=== PATIENT | female | born 1990 | race Two or more races ===

== ENCOUNTER 2019-07-04 17:54 | Emergency (ER) | payer SELFPAY ==
[~2019-07-04] VITALS: Ht 157.5 cm; Wt 77.1 kg
[2019-07-04 18:02] VITALS: BP 159/94
== END 2019-07-04 19:58 | disposition home or self-care (01) ==
LOC: ER 17:54
DX: H60.92 Unspecified otitis externa, left ear (principal)
CPT/HCPCS: 81002; 81025